=== PATIENT | male | born 1960 | race Caucasian/White ===

== ENCOUNTER 2023-04-13 05:02 | Emergency (ER) | payer OTHER, SELFPAY ==
[2023-04-13] VITALS (12 sets, daily range): BP systolic 77–134; BP diastolic 57–86; PULSE 65–84; RESP 9–18; TEMP 35.8; O2SAT 96–100; BMI 36.2
[2023-04-13] MEDS: SODIUM CHLORIDE 0.9% 1,000 ML 1000 ML IV (05:10)
--- NOTE | 2023-04-13 05:10 | DI.CT.S_ITS ---
PROCEDURE: CT CERVICAL SPINE WO CON INDICATIONS: fall TECHNIQUE: Noncontrast 3 mm thick sections acquired from the skull base to the T4 level. Sagittal and coronal reformats were then constructed. For radiation dose reduction, the following was used: automated exposure control, adjustment of mA and/or kV according to patient size. COMPARISON: None. FINDINGS: Image quality: Excellent. Bones: No fractures or dislocations. Straightening of cervical curvature. Mild degenerative disease and moderate facet arthropathy in cervical spine. Moderate atlantoaxial joint degeneration. Visualized superior ribs are intact. Soft tissues: Prevertebral soft tissues are normal in thickness. No paravertebral hematomas. No apical pneumothoraces. There are thyroid nodules bilaterally. IMPRESSION: 1. No cervical spine fractures. 2. Degenerative changes as described. 3. Thyroid nodules bilaterally. Consider thyroid ultrasound for follow-up. No significant discrepancy with the warehouse worker 2nd shift radiology preliminary report. Dictated by: Reji Hu M.D. on 04/13/2023 at 7:47 Approved by: Reji Hu M.D. on 04/13/2023 at 7:49
--- NOTE | 2023-04-13 05:11 | DI.RAD.S_ITS ---
PROCEDURE: XR CHEST 1V INDICATIONS: syncope TECHNIQUE: One view of the chest was acquired. COMPARISON: None. FINDINGS: Surgical changes and devices: None. Lungs and pleura: Lungs are clear. No pleural effusions or pneumothorax. Mediastinum: Mild widening of mediastinum is likely caused by AP technique. Heart size is normal. Bones and chest wall: No suspicious bony lesions. Overlying soft tissues appear unremarkable. IMPRESSION: 1. No acute cardiopulmonary disease. No significant discrepancy with the shift coordinator radiology preliminary report. Dictated by: Reji Hu M.D. on 04/13/2023 at 8:10 Approved by: Reji Hu M.D. on 04/13/2023 at 8:12
--- NOTE | 2023-04-13 05:11 | ED_ITS ---
HPI - General Adult <Marah Lux MD - Last Filed: 05/01/23 23:26> General Chief complaint: Fall Stated complaint: GLF Time Seen by Provider: 04/13/23 05:09 History of Present Illness HPI narrative: 62-year-old gentleman who has a history of baseline hypotension, diet-controlled diabetes, peripheral neuropathy visiting [place] on their boat, main residence [place] [facility] reportedly got up to go to the bathroom and had a syncopal episode. Events are not entirely clear. 911 was called and initial blood pressures were in the 70s systolic. He is perseverating with a GCS of 14 so C-spine precautions were initiated. On arrival in the emergency room patient is pleasant, perseverating states that he is had episodes of significantly low blood pressures typically related to dehydration with near-syncope in the past. It is not complaining of any pain reports no recent fevers, cough, chills. Does not report any palpitations has no recollection of events. Related Data Allergies Allergy/AdvReac Type Severity Reaction Status Date / Time No Known Drug Allergies Allergy Verified 04/13/23 05:26 Review of Systems <Marah Lux MD - Last Filed: 05/01/23 23:26> Review of Systems Narrative: Pertinent positive and negative findings as per HPI Patient History <Marah Lux MD - Last Filed: 05/01/23 23:26> Medical History (Updated 04/28/23 @ 00:02 by ) Peripheral neuropathy Social History Smoking Status: Never smoker Exam <Marah Lux MD - Last Filed: 05/01/23 23:26> Initial Vital Signs Initial Vital Signs: Vital Signs Temperature 96.5 F L 04/13/23 05:02 Pulse Rate 67 04/13/23 05:02 Respiratory Rate 16 04/13/23 05:02 Blood Pressure 125/73 04/13/23 05:02 Pulse Oximetry 99 04/13/23 05:02 Oxygen Delivery Method Room Air 04/13/23 05:02 General: Healthy appearing, in no acute distress. Retrograde amnesia with mild perseveration HEENT: Moist mucous membranes, normal sclera with reactive pupils, head is atraumatic and normocephalic. Neck: No midline cervical spine tenderness, supple Respiratory: Lungs are clear to auscultation, no wheezing no rales no rhonchi. Full and symmetrical air movement. No tenderness with manipulation of ribcage Cardiac: Regular rate and rhythm no murmurs no bruits Abdomen: Soft, nontender, good bowel tones, no flank pain. No pelvic ring tenderness and no thoracic or lumbar pain to palpation Skin: Warm and dry, no rashes Neurologic: Moving all extremities but slightly confused, retrograde amnesia GCS is 14 Extremities: No trauma, well perfused Psych: Cooperative, confused <Reyes Crane DO - Last Filed: 04/13/23 08:00> Initial Vital Signs Initial Vital Signs: Vital Signs Temperature 96.5 F L 04/13/23 05:02 Pulse Rate 67 04/13/23 05:02 Respiratory Rate 16 04/13/23 05:02 Blood Pressure 125/73 04/13/23 05:02 Pulse Oximetry 99 04/13/23 05:02 Oxygen Delivery Method Room Air 04/13/23 05:02 Course <Marah Lux MD - Last Filed: 05/01/23 23:26> Orders Ordered: Discontinued Medications Acetaminophen (Acetaminophen 325 Mg Tablet) 975 mg PO NOW ONE Stop: 04/13/23 07:59 Last Admin: 04/13/23 08:11 Dose: 975 mg Documented By: MIKAYLA Sodium Chloride (Normal Saline 0.9%) 1,000 mls @ 1,000 mls/hr IV BOLUS ONE Stop: 04/13/23 06:08 Last Infusion: 04/13/23 06:19 Dose: 0 mls/hr Documented By: Admin: 04/13/23 05:10 Dose: 1,000 mls/hr Documented By: KWASI Vital Signs Vital signs: Vital Signs - 8 hr 04/13/23 05:02 04/13/23 05:09 04/13/23 05:11 Temperature 96.5 F L 96.5 F L Pulse Rate 67 66 67 Respiratory Rate 16 18 10 L Blood Pressure 125/73 125/73 Pulse Oximetry 99 100 100 Oxygen Delivery Method Room Air Room Air Room Air 04/13/23 05:30 04/13/23 05:30 04/13/23 05:40 Temperature Pulse Rate 65 Respiratory Rate 14 Blood Pressure 123/79 132/67 Pulse Oximetry Oxygen Delivery Method 08/29/23 05:40 04/13/23 05:45 04/13/23 05:45 Temperature Pulse Rate 72 73 Respiratory Rate 12 11 L Blood Pressure 130/71 Pulse Oximetry 99 99 Oxygen Delivery Method Room Air 04/13/23 05:10 04/13/23 07:00 04/13/23 07:00 Temperature Pulse Rate 78 Respiratory Rate Blood Pressure 77/57 L 119/75 Pulse Oximetry 99 Oxygen Delivery Method Room Air 04/13/23 07:15 04/13/23 07:15 04/13/23 07:30 Temperature Pulse Rate 84 Respiratory Rate 10 L Blood Pressure 127/78 120/80 Pulse Oximetry 96 Oxygen Delivery Method 04/13/23 07:30 04/13/23 07:46 04/13/23 07:46 Temperature Pulse Rate 81 83 Respiratory Rate 9 L 15 Blood Pressure 134/86 Pulse Oximetry 98 98 Oxygen Delivery Method <Reyes Crane DO - Last Filed: 04/13/23 08:00> Orders Ordered: Discontinued Medications Acetaminophen (Acetaminophen 325 Mg Tablet) 975 mg PO NOW ONE Stop: 04/13/23 07:59 Last Admin: 04/13/23 08:11 Dose: 975 mg Documented By: MIKAYLA Sodium Chloride (Normal Saline 0.9%) 1,000 mls @ 1,000 mls/hr IV BOLUS ONE Stop: 04/13/23 06:08 Last Infusion: 04/13/23 06:19 Dose: 0 mls/hr Documented By: Admin: 04/13/23 05:10 Dose: 1,000 mls/hr Documented By: KWASI Vital Signs Vital signs: Vital Signs - 8 hr 04/13/23 05:02 04/13/23 05:09 04/13/23 05:11 Temperature 96.5 F L 96.5 F L Pulse Rate 67 66 67 Respiratory Rate 16 18 10 L Blood Pressure 125/73 125/73 Pulse Oximetry 99 100 100 Oxygen Delivery Method Room Air Room Air Room Air 04/13/23 05:30 04/13/23 05:30 04/13/23 05:40 Temperature Pulse Rate 65 Respiratory Rate 14 Blood Pressure 123/79 132/67 Pulse Oximetry Oxygen Delivery Method 04/13/23 05:40 04/13/23 05:45 04/13/23 05:45 Temperature Pulse Rate 72 73 Respiratory Rate 12 11 L Blood Pressure 130/71 Pulse Oximetry 99 99 Oxygen Delivery Method Room Air 04/13/23 05:10 04/13/23 07:00 04/13/23 07:00 Temperature Pulse Rate 78 Respiratory Rate Blood Pressure 77/57 L 119/75 Pulse Oximetry 99 Oxygen Delivery Method Room Air 04/13/23 07:15 04/13/23 07:15 04/13/23 07:30 Temperature Pulse Rate 84 Respiratory Rate 10 L Blood Pressure 127/78 120/80 Pulse Oximetry 96 Oxygen Delivery Method 04/13/23 07:30 04/13/23 07:46 04/13/23 07:46 Temperature Pulse Rate 81 83 Respiratory Rate 9 L 15 Blood Pressure 134/86 Pulse Oximetry 98 98 Oxygen Delivery Method Medical Decision Making <Marah Lux MD - Last Filed: 05/01/23 23:26> Lab Data 04/13/23 05:02 04/13/23 05:02 Labs: Lab Results 04/13/23 04/13/23 04/13/23 Range/Units 05:02 05:02 05:02 WBC 13.2 H (4.5-11.0) X10^3/uL RBC 5.58 (4.5-5.9) X10^6/uL Hgb 15.1 (13.5-17.5) g/dL Hct 45.7 (41-53) % MCV 82.0 (80-100) fL MCH 27.1 (26-34) PG MCHC 33.1 (30-36) % RDW 15.1 H (11.6-14.8) % Plt Count 477 H (150-400) X10^3/uL Neut % (Auto) 56.5 (50-75) % Lymph % (Auto) 28.1 (25-40) % Pine % (Auto) 11.5 (3-14) % Eos % (Auto) 2.3 (2-4) % Baso % (Auto) 1.6 (0-2) % Neut # (Auto) 7500 H (3457-2028) /uL Lymph # (Auto) 3700 (4469-8811) /uL Pine # (Auto) 1500 H (0-900) /uL Eos # (Auto) 300 (0-450) /uL Baso # (Auto) 200 H (0-100) /uL Sodium 137 (137-145) mmol/L Potassium 3.6 (3.4-5.1) mmol/L Chloride 100 (98-107) mmol/L Carbon Dioxide 28 (22-32) mmol/L BUN 22 H (9-20) mg/dL Creatinine 1.21 (0.66-1.25) mg/dL Estimated GFR > 60 (>60) mL/min BUN/Creatinine Ratio 18.2 (6-22) Glucose 114 H (80-110) mg/dL Lactate 1.2 (0.7-2.1) mmol/L Calcium 8.9 (8.4-10.2) mg/dL Magnesium 2.3 (1.6-2.3) mg/dL Total Bilirubin 0.5 (0.2-1.3) mg/dL AST 31 (17-59) IU/L ALT 36 (<50) IU/L Alkaline Phosphatase 38 (38-126) U/L Troponin I < 0.012 (0.01-0.034) ng/mL NT-Pro-B Natriuret Pep < 20 (<125) pg/mL Total Protein 7.3 (6.3-8.2) g/dL Albumin 4.2 (3.5-5.0) g/dL Globulin 3.1 (1.7-4.1) g/dL Albumin/Globulin Ratio 1.4 (1.0-2.8) Lipase 344 H (23-300) U/L Procalcitonin 0.05 (<0.5) ng/mL Urine Color Urine Appearance Urine pH (4.5-8.0) Ur Specific [place] (1.000-1.035) Urine Protein (Negative) Urine Glucose (UA) (Negative) g/dL Urine Ketones (NEGATIVE) Urine Occult Blood (Negative) Urine Nitrate (Negative) Urine Bilirubin (NEGATIVE) Urine Urobilinogen (0.2) E.U./dL Ur Leukocyte Esterase (NEGATIVE) Urine RBC (0-5/HPF) Urine WBC (0-5/HPF) Ur Squamous Epith Cells (0-5/HPF) Urine Bacteria (None) Hyaline Casts (None) Ur Culture Indicated? Ethyl Alcohol < 10 ( - 10) mg/dL 04/13/23 04/13/23 Range/Units 06:54 06:57 WBC (4.5-11.0) X10^3/uL RBC (4.5-5.9) X10^6/uL Hgb (13.5-17.5) g/dL Hct (41-53) % MCV (80-100) fL MCH (26-34) PG MCHC (30-36) % RDW (11.6-14.8) % Plt Count (150-400) X10^3/uL Neut % (Auto) (50-75) % Lymph % (Auto) (25-40) % Pine % (Auto) (3-14) % Eos % (Auto) (2-4) % Baso % (Auto) (0-2) % Neut # (Auto) (2798-6202) /uL Lymph # (Auto) (6173-6777) /uL Pine # (Auto) (0-900) /uL Eos # (Auto) (0-450) /uL Baso # (Auto) (0-100) /uL Sodium (137-145) mmol/L Potassium (3.4-5.1) mmol/L Chloride (98-107) mmol/L Carbon Dioxide (22-32) mmol/L BUN (9-20) mg/dL Creatinine (0.66-1.25) mg/dL Estimated GFR (>60) mL/min BUN/Creatinine Ratio (6-22) Glucose (80-110) mg/dL Lactate (0.7-2.1) mmol/L Calcium (8.4-10.2) mg/dL Magnesium (1.6-2.3) mg/dL Total Bilirubin (0.2-1.3) mg/dL AST (17-59) IU/L ALT (<50) IU/L Alkaline Phosphatase (38-126) U/L Troponin I < 0.012 (0.01-0.034) ng/mL NT-Pro-B Natriuret Pep (<125) pg/mL Total Protein (6.3-8.2) g/dL Albumin (3.5-5.0) g/dL Globulin (1.7-4.1) g/dL Albumin/Globulin Ratio (1.0-2.8) Lipase (23-300) U/L Procalcitonin (<0.5) ng/mL Urine Color Yellow Urine Appearance Clear Urine pH 5.5 (4.5-8.0) Ur Specific Melville 1.020 (1.000-1.035) Urine Protein Negative (Negative) Urine Glucose (UA) Negative (Negative) g/dL Urine Ketones 2+ H (NEGATIVE) Urine Occult Blood Negative (Negative) Urine Nitrate Negative (Negative) Urine Bilirubin Negative (NEGATIVE) Urine Urobilinogen 0.2 (0.2) E.U./dL Ur Leukocyte Esterase Negative (NEGATIVE) Urine RBC None seen (0-5/HPF) Urine WBC None seen (0-5/HPF) Ur Squamous Epith Cells 0-1 /hpf (0-5/HPF) Urine Bacteria None seen (None) Hyaline Casts 1-5/lpf (None) Ur Culture Indicated? Cult not indicated Ethyl Alcohol ( - 10) mg/dL MDM Narrative Medical decision making narrative: CC: Syncopal episode presumed head injury, confused with retrograde amnesia and perseveration no obvious trauma Complicating co-morbidities: Diabetes, prior episodes of hypotension, peripheral neuropathy Data collected from: patient, , paramedics Social determinants of health that may influence the patients condition: Currently visiting [place], staying on his boat primary address is [place] Medical records reviewed: Differential considered: Syncope-cardiogenic, vasogenic, stroke, orthostatic hypotension, sepsis, acute coronary syndrome Exam documented above, pertinent findings include: No overt significant trauma but perseveration and GCS of 14 Lab Test results independently reviewed as above. Pertinent findings: CBC has mild leukocytosis at 13.2 without significant left shift, no anemia Under the CMP is unremarkable Initial Troponin is undetectable ProBNP is reassuring Lactic acid is appropriate at 1.2 Lipase is minimally elevated at 344 Procalcitonin is unremarkable Alcohol level is undetectable Independently reviewed EKG sinus rhythm at a rate of 65, normal intervals, normal axis. No acute ischemic changes Imaging studies independently reviewed: CT scan of the head is unremarkable CT scan of the cervical spine does not show acute injury Chest x-ray is unremarkable with no cardiopulmonary abnormalities Treatments: 1 L of IV fluid Re-evaluations: C-collar is removed, patient is mobilized blood pressure is stable continues to have significant perseveration Discussion: 62-year-old gentleman with a syncopal episode today presumably fell and hit his head with concussion and significant perseveration. CT scan of the head and cervical spine are unremarkable no additional trauma is appreciated. No abnormalities are noted on initial lab workup. No evidence of acute coronary syndrome. After a L of fluid blood pressure and heart rate are appropriate when going from a lying to a standing position. There is no evidence of sepsis, acute blood loss or alternate abnormalities that would require additional workup imaging or hospitalization. He will be safe for discharge home with a diagnosis of concussion and orthostatic hypotension. His is currently calling their adult son to come help get dad home and figure out how to get the boat back to [place] Additional Information: MIPS:Emergency Medicine: Utilization of CT for Minor Blunt Head Trauma (Adult) Patient is 18 or older, presenting with minor blunt head trauma. Head CT was ordered by an emergency day care home mother for trauma because Reasons: Patient GCS < 15 Patient has loss of consciousness and (must select one of the following): -Short term memory deficit <Reyes Crane DO - Last Filed: 04/13/23 08:00> Lab Data Lab results reviewed: Yes I reviewed the patient's lab results. Labs: Lab Results 04/13/23 04/13/23 04/13/23 Range/Units 05:02 05:02 05:02 WBC 13.2 H (4.5-11.0) X10^3/uL RBC 5.58 (4.5-5.9) X10^6/uL Hgb 15.1 (13.5-17.5) g/dL Hct 45.7 (41-53) % MCV 82.0 (80-100) fL MCH 27.1 (26-34) PG MCHC 33.1 (30-36) % RDW 15.1 H (11.6-14.8) % Plt Count 477 H (150-400) X10^3/uL Neut % (Auto) 56.5 (50-75) % Lymph % (Auto) 28.1 (25-40) % Pine % (Auto) 11.5 (3-14) % Eos % (Auto) 2.3 (2-4) % Baso % (Auto) 1.6 (0-2) % Neut # (Auto) 7500 H (7890-3619) /uL Lymph # (Auto) 3700 (8494-9019) /uL Pine # (Auto) 1500 H (0-900) /uL Eos # (Auto) 300 (0-450) /uL Baso # (Auto) 200 H (0-100) /uL Sodium 137 (137-145) mmol/L Potassium 3.6 (3.4-5.1) mmol/L Chloride 100 (98-107) mmol/L Carbon Dioxide 28 (22-32) mmol/L BUN 22 H (9-20) mg/dL Creatinine 1.21 (0.66-1.25) mg/dL Estimated GFR > 60 (>60) mL/min BUN/Creatinine Ratio 18.2 (6-22) Glucose 114 H (80-110) mg/dL Lactate 1.2 (0.7-2.1) mmol/L Calcium 8.9 (8.4-10.2) mg/dL Magnesium 2.3 (1.6-2.3) mg/dL Total Bilirubin 0.5 (0.2-1.3) mg/dL AST 31 (17-59) IU/L ALT 36 (<50) IU/L Alkaline Phosphatase 38 (38-126) U/L Troponin I < 0.012 (0.01-0.034) ng/mL NT-Pro-B Natriuret Pep < 20 (<125) pg/mL Total Protein 7.3 (6.3-8.2) g/dL Albumin 4.2 (3.5-5.0) g/dL Globulin 3.1 (1.7-4.1) g/dL Albumin/Globulin Ratio 1.4 (1.0-2.8) Lipase 344 H (23-300) U/L Procalcitonin 0.05 (<0.5) ng/mL Urine Color Urine Appearance Urine pH (4.5-8.0) Ur Specific Melville (1.000-1.035) Urine Protein (Negative) Urine Glucose (UA) (Negative) g/dL Urine Ketones (NEGATIVE) Urine Occult Blood (Negative) Urine Nitrate (Negative) Urine Bilirubin (NEGATIVE) Urine Urobilinogen (0.2) E.U./dL Ur Leukocyte Esterase (NEGATIVE) Urine RBC (0-5/HPF) Urine WBC (0-5/HPF) Ur Squamous Epith Cells (0-5/HPF) Urine Bacteria (None) Hyaline Casts (None) Ur Culture Indicated? Ethyl Alcohol < 10 ( - 10) mg/dL 08/29/23 08/29/23 Range/Units 06:54 06:57 WBC (4.5-11.0) X10^3/uL RBC (4.5-5.9) X10^6/uL Hgb (13.5-17.5) g/dL Hct (41-53) % MCV (80-100) fL MCH (26-34) PG MCHC (30-36) % RDW (11.6-14.8) % Plt Count (150-400) X10^3/uL Neut % (Auto) (50-75) % Lymph % (Auto) (25-40) % Pine % (Auto) (3-14) % Eos % (Auto) (2-4) % Baso % (Auto) (0-2) % Neut # (Auto) (5877-9429) /uL Lymph # (Auto) (1090-6850) /uL Pine # (Auto) (0-900) /uL Eos # (Auto) (0-450) /uL Baso # (Auto) (0-100) /uL Sodium (137-145) mmol/L Potassium (3.4-5.1) mmol/L Chloride (98-107) mmol/L Carbon Dioxide (22-32) mmol/L BUN (9-20) mg/dL Creatinine (0.66-1.25) mg/dL Estimated GFR (>60) mL/min BUN/Creatinine Ratio (6-22) Glucose (80-110) mg/dL Lactate (0.7-2.1) mmol/L Calcium (8.4-10.2) mg/dL Magnesium (1.6-2.3) mg/dL Total Bilirubin (0.2-1.3) mg/dL AST (17-59) IU/L ALT (<50) IU/L Alkaline Phosphatase (38-126) U/L Troponin I < 0.012 (0.01-0.034) ng/mL NT-Pro-B Natriuret Pep (<125) pg/mL Total Protein (6.3-8.2) g/dL Albumin (3.5-5.0) g/dL Globulin (1.7-4.1) g/dL Albumin/Globulin Ratio (1.0-2.8) Lipase (23-300) U/L Procalcitonin (<0.5) ng/mL Urine Color Yellow Urine Appearance Clear Urine pH 5.5 (4.5-8.0) Ur Specific Mel[place] 1.020 (1.000-1.035) Urine Protein Negative (Negative) Urine Glucose (UA) Negative (Negative) g/dL Urine Ketones 2+ H (NEGATIVE) Urine Occult Blood Negative (Negative) Urine Nitrate Negative (Negative) Urine Bilirubin Negative (NEGATIVE) Urine Urobilinogen 0.2 (0.2) E.U./dL Ur Leukocyte Esterase Negative (NEGATIVE) Urine RBC None seen (0-5/HPF) Urine WBC None seen (0-5/HPF) Ur Squamous Epith Cells 0-1 /hpf (0-5/HPF) Urine Bacteria None seen (None) Hyaline Casts 1-5/lpf (None) Ur Culture Indicated? Cult not indicated Ethyl Alcohol ( - 10) mg/dL MDM Narrative Medical decision making narrative: CC: Syncopal episode presumed head injury, confused with retrograde amnesia and perseveration no obvious trauma Complicating co-morbidities: Diabetes, prior episodes of hypotension, peripheral neuropathy Data collected from: patient, , paramedics Social determinants of health that may influence the patients condition: Currently visiting [place], staying on his boat primary address is [place] Medical records reviewed: Differential considered: Syncope-cardiogenic, vasogenic, stroke, orthostatic hypotension, sepsis, acute coronary syndrome Exam documented above, pertinent findings include: No overt significant trauma but perseveration and GCS of 14 Lab Test results independently reviewed as above. Pertinent findings: CBC has mild leukocytosis at 13.2 without significant left shift, no anemia Under the CMP is unremarkable Initial Troponin is undetectable ProBNP is reassuring Lactic acid is appropriate at 1.2 Lipase is minimally elevated at 344 Procalcitonin is unremarkable Alcohol level is undetectable Independently reviewed EKG sinus rhythm at a rate of 65, normal intervals, normal axis. No acute ischemic changes Imaging studies independently reviewed: CT scan of the head is unremarkable CT scan of the cervical spine does not show acute injury Chest x-ray is unremarkable with no cardiopulmonary abnormalities Treatments: 1 L of IV fluid Re-evaluations: C-collar is removed, patient is mobilized blood pressure is stable continues to have significant perseveration Discussion: 62-year-old gentleman with a syncopal episode today presumably fell and hit his head with concussion and significant perseveration. CT scan of the head and cervical spine are unremarkable no additional trauma is appreciated. No abnormalities are noted on initial lab workup. No evidence of acute coronary syndrome. After a L of fluid blood pressure and heart rate are appropriate when going from a lying to a standing position. There is no evidence of sepsis, acute blood loss or alternate abnormalities that would require additional workup imaging or hospitalization. He will be safe for discharge home with a diagnosis of concussion and orthostatic hypotension. His is currently calling their adult son to come help get dad home and figure out how to get the boat back to [place] Dr crane: Received turned over. Reviewed patient's history and physical exam. Reviewed patient's workup up to this point. Labs are unremarkable. Radiologic studies are unremarkable. He seems to be recovering some of his memory. He is less repetitive. He states he feels better. He is having headache so will be administer Tylenol. Will discharge patient home with return precautions Critical Care Time <Marah Lux MD - Last Filed: 05/01/23 23:26> Critical Care Time Critical Care Time: Yes Total Critical Care Time: 34 Attestation: Critical care time is separate from other billable procedures. There is a high probability of a significant, sudden or life-threatening deterioration that requires my full and direct attention, intervention and personal management. This critical care time includes consultation with family and other consulting doctors, review of records, and interpretation of data from labs, EKGs and imaging as well as managements of trauma with head injury Discharge Plan Departure Patient Disposition: Home Clinical Impression: Syncope, Concussion with loss of consciousness Instructions: DI for Concussion, DI for Syncope in Adults (Fainting), DI for Postconcussion Syndrome Activity Restrictions/Additional Instructions: Thank you for coming in today Best accounts seem to indicate that you got up to go to the bathroom became marisa penaaded fell down likely hit your head. You are having symptoms of a concussion with some memory loss and you do not seem to remember much of the events themselves. Your blood work was reassuring, there is no evidence of stroke, bleeding inside your head tumors inside your brain, electrolyte abnormalities heart attack or other life-threatening findings that would require hospitalization or further evaluation in the emergency department. Stand Alone Forms: Patient Portal/API
--- NOTE | 2023-04-13 05:11 | DI.CT.S_ITS ---
PROCEDURE: CT HEAD/BRAIN WO CON INDICATIONS: fall, GCS 14 TECHNIQUE: Noncontrast 4.5 mm thick angled axial sections acquired from the foramen magnum to the vertex, with coronal and sagittal reformats. For radiation dose reduction, the following was used: automated exposure control, adjustment of mA and/or kV according to patient size. COMPARISON: None. FINDINGS: Image quality: Excellent. CSF spaces: Basal cisterns are patent. No extra-axial fluid collections. The ventricles are symmetric in size and shape. Brain: No intracranial bleeds or masses. There is cerebral volume loss for age, with resultant ventricular and sulcal prominence. There are periventricular and deep white matter chronic small vessel ischemic changes. There is intracranial internal carotid artery atherosclerosis. Skull and face: Calvarium and visualized facial bones appear intact, without suspicious lesions. Sinuses: Visualized sinuses and mastoids are clear. IMPRESSION: 1. No acute intracranial abnormalities. No significant discrepancy with the manufacturing supervisor 2nd shift radiology preliminary report. Dictated by: Reji Hu M.D. on 04/13/2023 at 7:41 Approved by: Reji Hu M.D. on 04/13/2023 at 7:42
[2023-04-13 05:31] LABS: Add Manual Diff / Slide Review NO; Basophils Absolute Auto 200 /uL (0-100); Basophils Percent Auto 1.6 % (0-2); Eosinophils Absolute Auto 300 /uL (0-450); Eosinophils Percent Auto 2.3 % (2-4); Hematocrit 45.7 % (41-53); Hemoglobin 15.1 g/dL (13.5-17.5); Lymphocytes Absolute Auto 3700 /uL (1100-4500); Lymphocytes Percent Auto 28.1 % (25-40); Mean Corpuscular HGB Conc 33.1 % (30-36); Mean Corpuscular Hemoglobin 27.1 PG (26-34); Monocytes Absolute Auto 1500 /uL (0-900); Monocytes Percent Auto 11.5 % (3-14); Neutrophils Absolute Auto 7500 /uL (1500-7000); Neutrophils Percent Auto 56.5 % (50-75); Platelet Count 477 X10^3/uL (150-400); Red Blood Cell Count 5.58 X10^6/uL (4.5-5.9); Red Cell Distribution Width 15.1 % (11.6-14.8); White Blood Cell Count 13.2 X10^3/uL (4.5-11.0)
[2023-04-13 05:46] LABS: Lactate (Lactic Acid) 1.2 mmol/L (0.7-2.1)
[2023-04-13 05:47] LABS: Alanine Aminotransferase 36 IU/L (<50); Albumin 4.2 g/dL (3.5-5.0); Albumin Globulin Ratio 1.4 (1.0-2.8); Alkaline Phosphatase 38 U/L (38-126); Aspartate Aminotransferase 31 IU/L (17-59); BUN Creatinine Ratio 18.2 (6-22); Bilirubin Total 0.5 mg/dL (0.2-1.3); Blood Urea Nitrogen 22 mg/dL (9-20); Calcium 8.9 mg/dL (8.4-10.2); Carbon Dioxide 28 mmol/L (22-32); Chloride 100 mmol/L (98-107); Estimated Glomerular Filt Rate > 60 mL/min (>60); Globulin 3.1 g/dL (1.7-4.1); Glucose 114 mg/dL (80-110); HEMOLYSIS < 15 (0-50); Lipase 344 U/L (23-300); Magnesium 2.3 mg/dL (1.6-2.3); Potassium 3.6 mmol/L (3.4-5.1); Sodium 137 mmol/L (137-145); Total Protein 7.3 g/dL (6.3-8.2)
[2023-04-13 05:59] LABS: NT-proBNP (BNP-Adult 18+) < 20 pg/mL (<125); Troponin I < 0.012 ng/mL (0.01-0.034)
[2023-04-13 06:04] LABS: Procalcitonin 0.05 ng/mL (<0.5)
[2023-04-13 06:16] LABS: Ethanol (ETOH) < 10 mg/dL
--- NOTE | 2023-04-13 06:45 | PC.NURSE ---
Hard C-collar removed at 0645. Orthostatic VS completed. Laying: BP 129/66, HR 77 Sitting: BP 125/72, HR 80 Standing: BP 121/74, HR 79 Patient reports some dizziness upon standing, but able to stand and use urinal without assistance.
[2023-04-13 07:22] LABS: Appearance Urine UA CLEAR; Bilirubin Urine UA NEGATIVE (NEGATIVE); Color Urine UA YELLOW; Glucose Urine UA NEGATIVE (Negative); Ketones Urine UA 2+ (NEGATIVE); Leukocyte Esterase Urine UA NEGATIVE (NEGATIVE); Nitrite Urine UA NEGATIVE (Negative); Occult Blood Urine UA NEGATIVE (Negative); Protein Urine UA NEGATIVE (Negative); Urobilinogen Urine UA 0.2 E.U./dL (0.2); pH Urine UA 5.5 (4.5-8.0)
[2023-04-13 07:28] LABS: Bacteria Urine None Seen; Culture Indicated Urine Cult Not Indicated; Hyaline Casts Urine 1-5/LPF; RBC Urine None Seen (0-5/HPF); Squamous Epithelial Cell Urine 0-1 /HPF (0-5/HPF); WBC Urine None Seen (0-5/HPF)
[2023-04-13 07:31] LABS: Troponin I < 0.012 ng/mL (0.01-0.034)
[2023-04-13] MEDS: ACETAMINOPHEN 325 MG TABLET 975 MG PO (08:11)
== END 2023-04-13 08:17 | disposition home or self-care (01) ==
PROVIDERS: Emergency Medicine; Emergency Provider Emergency Medicine
DX: S06.0X9A Concussion with loss of consciousness of unspecified duration, initial encounter (principal); R55 Syncope and collapse
CPT/HCPCS: 36415; 70450; 71045; 72125; 80053; 80320; 81001; 83605; 83690; 83735; 83880; 84145; 84484; 85025; 87040; 93005; 96360; 99284; 99285